=== PATIENT | male | born 1975 | race Hispanic/Latino ===

== ENCOUNTER 2017-06-01 19:42 | Observation (INO) | payer MEDICARE, OTHER ==
[2017-06-01 19:46] VITALS: BMI 27.1
[2017-06-01 20:16] LABS: BASO % 0.5 % (0.0-2.0); EOS # 0.2 K/uL (0.0-0.7); EOS % 3.9 % (0.0-4.0); HEMATOCRIT 43.5 % (35.0-51.0); LYMPH # 2.5 K/uL (1.0-4.3); LYMPH % 41.3 % (20.0-40.0); MEAN CELL VOLUME 93.7 fL (80.0-94.0); MEAN CORPUSCULAR HEMOGLOBIN 30.7 pg (27.0-31.0); MEAN CORPUSCULAR HGB CONC 32.8 g/dL (33.0-37.0); MEAN PLATELET VOLUME 8.1 fL (7.2-11.7); MONO # 0.5 K/uL (0.0-0.8); MONO % 8.9 % (0.0-10.0); RED CELL DISTRIBUTION WIDTH 14.4 % (11.5-14.5)
[2017-06-01 20:23] LABS: CHLORIDE 108 mmol/L (98-107); POTASSIUM 3.4 mmol/L (3.6-5.2); SODIUM 147 mmol/L (132-148)
[2017-06-01 20:25] LABS: ALB/GLOB RATIO 1.3 (1.0-2.1); ALKALINE PHOSPHATASE 70 U/L (38-126); AST/SGOT 79 U/L (17-59); BILIRUBIN,TOTAL 0.4 mg/dL (0.2-1.3); CARBON DIOXIDE 22 mmol/L (22-30); GFR AFRICAN-AMERICAN > 60; TOTAL PROTEIN 6.5 g/dL (6.3-8.3)
[2017-06-01 20:26] LABS: ALT/SGPT 73 U/L (21-72); BLOOD UREA NITROGEN 17 mg/dL (9-20); CALCIUM 7.9 mg/dl (8.6-10.4); GLUCOSE,RANDOM 130 mg/dL (75-110)
[2017-06-01 20:36] LABS: ALCOHOL SERUM 492 mg/dl (0-10)
--- NOTE | 2017-06-01 20:44 | C.PDOC ---
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 Reports he fell landing on his forehead. Patient was found by police staggering on the street bleeding from his forehead. Was recently evaluated at [facility] May 24 for alcohol abuse. Denies fever, chills, chest pain, SOB, abdominal pain, or any other complaints. Time Seen by Provider: 06/01/17 19:45 Chief Complaint (Nursing): Substance Abuse History Per: Patient History/Exam Limitations: no limitations Onset/Duration Of Symptoms: Hrs Current Symptoms Are (Timing): Still Present Suicide/Self Injury Attempted (Context): None Modifying Factor(s): Alcohol Severity: Mild Associated Symptoms: denies: Suicidal Thoughts, Suicidal Plan Recent travel outside of the [place]: No Additional History Per: Patient Past Medical History Reviewed: Historical Data, Nursing Documentation, Vital Signs Vital Signs: Last Vital Signs Temp 99.2 F 06/01/17 19:50 Pulse 108 H 06/01/17 19:50 Resp 16 06/01/17 19:50 BP 136/81 06/01/17 19:50 Pulse Ox 99 06/01/17 21:17 - [facility] Procedures INJECT/INFUSE NEC (02/19/14) Family History: States: Unknown Family Hx - Social History Hx Tobacco Use: Yes Hx Alcohol Use: No Hx Substance Use: No - Immunization History Hx Tetanus Toxoid Vaccination: No Hx Influenza Vaccination: No Hx Pneumococcal Vaccination: No Review Of Systems Except As Marked, All Systems Reviewed And Found Negative. Constitutional: Positive for: Other (Bleeding from the forehead. Alcohol intoxicated). Negative for: Fever, Chills Cardiovascular: Negative for: Chest Pain Respiratory: Negative for: Shortness of Breath Gastrointestinal: Negative for: Abdominal Pain Physical Exam - Physical Exam Appears: Non-toxic, No Acute Distress, Other ((+) AOB. spurious) Skin: Warm, Dry Head: Normacephalic, Laceration (1cm laceration to the forehead) Oral Mucosa: Moist Neck: No Midline Cervical Tenderness, Supple Cardiovascular: Rhythm Regular Respiratory: Normal Breath Sounds, No Rales, No Rhonchi, No Wheezing Gastrointestinal/Abdominal: Soft, No Tenderness Neurological/Psych: Oriented x3, No Normal Speech, Other (No focal deficit) Gait: Unsteady ED Course And Treatment - Laboratory Results Result Diagrams: 06/01/17 20:06 06/01/17 20:06 O2 Sat by Pulse Oximetry: 99 (RA) Pulse Ox Interpretation: Normal Medical Decision Making Medical Decision Making: Impression: 42 y/o male brought by police for public intoxication and 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 Plans: * CT Cervical * CT Head w/o * Blood work up * UA Disposition - Disposition Disposition Time: 01:00 Condition: GOOD - Clinical Impression Clinical Impression: Alcohol abuse with intoxication, Facial laceration - Scribe Statement The provider has reviewed the documentation as recorded by the Scribe Tin briscoe All medical record entries made by the Scribe were at my direction and personally dictated by me. I have reviewed the chart and agree that the record accurately reflects my personal performance of the history, physical exam, medical decision making, and the department course for this patient. I have also personally directed, reviewed, and agree with the discharge instructions and disposition. Physician Patient Turnover Patient Signed Over To: Nikolai Barker Handoff Comments: dispo in AM when sober
--- NOTE | 2017-06-01 21:14 | C.PDOC ---
Time Seen by Provider: 06/01/17 19:45 Chief Complaint (Nursing): Substance Abuse Past Medical History Vital Signs: Last Vital Signs Temp 99.2 F 06/01/17 19:50 Pulse 108 H 06/01/17 19:50 Resp 16 06/01/17 19:50 BP 136/81 06/01/17 19:50 Pulse Ox 99 06/01/17 19:50 - [facility] Procedures INJECT/INFUSE NEC (02/19/14) Family History: States: Unknown Family Hx - Social History Hx Tobacco Use: Yes Hx Alcohol Use: No Hx Substance Use: No - Immunization History Hx Tetanus Toxoid Vaccination: No Hx Influenza Vaccination: No Hx Pneumococcal Vaccination: No ED Course And Treatment - Laboratory Results Result Diagrams: 06/01/17 20:06 06/01/17 20:06 Lab Interpretation: Abnormal (ETOH 492 H) O2 Sat by Pulse Oximetry: 99 - Other Rad head Ct X-Ray: Read By Radiologist (no acute findings) CT C-spine X-Ray: Read By Radiologist (no acute findings.) Progress Note: c-collar and cleaned up in gurny. appropriately responsive for ETOH level Medical Decision Making Medical Decision Making: acute on chronic alcohol abuse, same @ [facility] 05/24/17, fall from standing, superficial facial lac, neg head/C-Spine CT's, Disposition - Disposition Forms: [employer] (Persian)
[2017-06-01 21:35] LABS: URINE BILIRUBIN NEGATIVE (NEGATIVE); URINE BLOOD NEGATIVE (NEGATIVE); URINE COLOR Straw (YELLOW); URINE GLUCOSE (UA) NORMAL (Normal); URINE KETONE NEGATIVE (NEGATIVE); URINE LEUKOCYTE ESTERASE NEG Leu/uL (Negative); URINE PROTEIN NEGATIVE (NEGATIVE); URINE UROBILINOGEN NORMAL mg/dL (0.2-1.0)
--- NOTE | 2017-06-01 21:43 | CT ---
EXAM: CT Head Without Intravenous Contrast CLINICAL HISTORY: 42 years old, male; Injury or trauma; Fall; Initial encounter; Abrasion; Forehead; Additional info: Intox, frontal contusion/lac TECHNIQUE: Axial computed tomography images of the head/brain without intravenous contrast. All CT scans at this facility use one or more dose reduction techniques, viz.: automated exposure control; ma/kV adjustment per patient size (including targeted exams where dose is matched to indication; i.e. head); or iterative reconstruction technique. COMPARISON: No relevant prior studies available. FINDINGS: Brain: Mild atrophy. No intracranial hemorrhage. No mass. No edema. Ventricles: No hydrocephalus. Bones/joints: No acute fracture. Soft tissues: Frontal soft tissue swelling. Scalp calcifications. Sinuses: No acute sinusitis. Mastoid air cells: No mastoid effusion. Orbits: Unremarkable as visualized. IMPRESSION: 1. No intracranial hemorrhage. 2. Incidental/non-acute findings are described above.
--- NOTE | 2017-06-01 21:52 | CT ---
EXAM: CT Cervical Spine Without Intravenous Contrast CLINICAL HISTORY: 42 years old, male; Injury or trauma; Fall; Initial encounter; Sprain or strain, cervical ligaments; Additional info: Intox, frontal contusion TECHNIQUE: Axial computed tomography images of the cervical spine without intravenous contrast. All CT scans at this facility use one or more dose reduction techniques, viz.: automated exposure control; ma/kV adjustment per patient size (including targeted exams where dose is matched to indication; i.e. head); or iterative reconstruction technique. Coronal and sagittal reformatted images were created and reviewed. COMPARISON: No relevant prior studies available. FINDINGS: Vertebrae: No acute fracture. Incomplete closure of C1 ring, normal variant. Discs/spinal canal/neural foramina: Early degenerative disc disease within lower cervical spine. No significant central canal stenosis. Mild neuroforaminal narrowing within lower cervical spine. Soft tissues: Unremarkable. Sinuses: Minimal mucosal thickening of maxillary sinuses. Lung apices: Unremarkable as visualized. IMPRESSION: 1. No fracture. 2. Incidental/non-acute findings are described above.
[2017-06-02 06:35] VITALS: BP 119/75; PULSE 90; RESP 18; TEMP 97.5; O2SAT 96
== END 2017-06-02 07:00 | disposition home or self-care (01) ==
LOC: C.ER 19:42 → C.9OBSV 21:16
PROVIDERS: ADMIT Internal Medicine; ATTEND Internal Medicine
DX: F10.129 Alcohol abuse with intoxication, unspecified (principal); S01.81XA Laceration without foreign body of other part of head, initial encounter; Z87.891 Personal history of nicotine dependence; W19.XXXA Unspecified fall, initial encounter
CPT/HCPCS: 70450; 72125; 80053; 81001; 85025; 99284; G0378; G0480

== ENCOUNTER 2017-06-12 16:56 | Observation (INO) | payer MEDICARE ==
[2017-06-12 16:56] VITALS: BMI 27.1
--- NOTE | 2017-06-12 18:54 | C.PDOC ---
History Of Present Illness A 42 year old male, with history of chronic etoh abuse, presents to the emergency department via EMS for public intoxication. The patient admits to drinking today and denies any fever, trauma, abdominal pain, headaches, or any other complaints at this time. HPI & ROS are limited due to intoxication. Time Seen by Provider: 06/12/17 18:36 Chief Complaint (Nursing): Substance Abuse History Per: Patient History/Exam Limitations: intoxication Onset/Duration Of Symptoms: Mins, Hrs Modifying Factor(s): Alcohol Past Medical History Vital Signs: Last Vital Signs Temp 97.6 F 06/12/17 19:44 Pulse 74 06/12/17 19:44 Resp 18 06/12/17 19:44 BP 108/82 06/12/17 19:44 Pulse Ox 95 06/12/17 19:44 - [facility] Procedures INJECT/INFUSE NEC (02/19/14) Family History: States: Unknown Family Hx - Social History Hx Tobacco Use: Yes Hx Alcohol Use: Yes Hx Substance Use: No - Immunization History Hx Tetanus Toxoid Vaccination: No Hx Influenza Vaccination: No Hx Pneumococcal Vaccination: No Review Of Systems Except As Marked, All Systems Reviewed And Found Negative. Constitutional: Negative for: Fever, Other (trauma ) Gastrointestinal: Negative for: Abdominal Pain Neurological: Negative for: Headache Physical Exam - Physical Exam Appears: Well, Non-toxic, No Acute Distress, Other (intoxicated ) Skin: Normal Color, Warm, Dry Head: Atraumatic, Normacephalic Eye(s): bilateral: Normal Inspection, PERRL, EOMI Nose: Normal Throat: Normal Neck: Normal Cardiovascular: Rhythm Regular Respiratory: Normal Breath Sounds Gastrointestinal/Abdominal: Normal Exam Back: Normal Inspection Extremity: Normal ROM ED Course And Treatment O2 Sat by Pulse Oximetry: 96 Reevaluation Time: 22:22 Reassessment Condition: Improved Medical Decision Making Medical Decision Making: Plan: Progress Notes: Patient is brought in via EMS for public intoxication and currently has alcohol on his breath and a healed scar from prior injury. 2220: clinically sober, re-eval no injuries nor neuro deficits Wants/ordered a tuna sandwich. Disposition Doctor Will See Patient In The: Office Counseled Patient/Family Regarding: Studies Performed, Diagnosis - Disposition Disposition: HOME/ ROUTINE Disposition Time: 22:22 Condition: GOOD - Clinical Impression Clinical Impression: Alcohol abuse - Scribe Statement The provider has reviewed the documentation as recorded by the Scribe Martha Bañuelos All medical record entries made by the Aleksandr were at my direction and personally dictated by me. I have reviewed the chart and agree that the record accurately reflects my personal performance of the history, physical exam, medical decision making, and the department course for this patient. I have also personally directed, reviewed, and agree with the discharge instructions and disposition.
[2017-06-12 19:45] VITALS: TEMP 97.6
[2017-06-12 22:23] VITALS: O2SAT 96
[2017-06-12 22:49] VITALS: BP 132/74; PULSE 72; RESP 26
== END 2017-06-12 22:21 | disposition home or self-care (01) ==
LOC: C.ER 16:56 → C.9OBSV 18:38
PROVIDERS: ADMIT Internal Medicine; ATTEND Internal Medicine
DX: F10.129 Alcohol abuse with intoxication, unspecified (principal)
CPT/HCPCS: 82948; G0378

== ENCOUNTER 2017-07-13 22:20 | Observation (INO) | payer MEDICARE ==
[2017-07-13 22:20] VITALS: BMI 27.1
--- NOTE | 2017-07-13 22:49 | C.PDOC ---
History Of Present Illness Patient presents to the ER with acute ETOH intoxication. Patient admits to drinking today; denies physical complaints at this time. Time Seen by Provider: 07/13/17 22:48 Chief Complaint (Nursing): Substance Abuse History Per: Patient History/Exam Limitations: no limitations Onset/Duration Of Symptoms: Hrs Current Symptoms Are (Timing): Still Present Suicide/Self Injury Attempted (Context): None Modifying Factor(s): Alcohol Severity: None Pain Scale Rating Of: 0 Associated Symptoms: denies: Depression, Suicidal Thoughts, Suicidal Plan Involuntary Hold By: None Recent travel outside of the [place]: No Past Medical History Reviewed: Historical Data, Nursing Documentation, Vital Signs Vital Signs: Last Vital Signs Temp 97.8 F 07/14/17 01:27 Pulse 80 07/14/17 03:24 Resp 18 07/14/17 03:24 BP 102/67 07/14/17 03:24 Pulse Ox 97 07/14/17 03:24 - Medical History PMH: No Chronic Diseases Surgical History: No Surg Hx - [facility] Procedures INJECT/INFUSE NEC (02/19/14) Family History: States: No Known Family Hx - Social History Hx Tobacco Use: Yes Hx Alcohol Use: Yes Hx Substance Use: No - Immunization History Hx Tetanus Toxoid Vaccination: No Hx Influenza Vaccination: No Hx Pneumococcal Vaccination: No Review Of Systems Constitutional: Negative for: Fever, Chills Gastrointestinal: Negative for: Nausea, Vomiting, Diarrhea Physical Exam - Physical Exam Appears: Non-toxic, No Acute Distress, Other (ETOH on breath, no signs of trauma ) Skin: Warm, Dry Head: Normacephalic Oral Mucosa: Moist Chest: Symmetrical, No Tenderness Cardiovascular: Rhythm Regular Respiratory: No Rales, No Rhonchi, No Wheezing Gastrointestinal/Abdominal: Soft, No Tenderness Neurological/Psych: Oriented x3 ED Course And Treatment O2 Sat by Pulse Oximetry: 97 Pulse Ox Interpretation: Normal Reevaluation Time: 05:06 Reassessment Condition: Improved ED OBSERVATION Discharge: Yes Date of observation admission: 07/13/17 Time of observation admission: 22:49 - Observation admission statement Patient is being placed in observation because:: acute alcohol intoxication - Goals of Observation Goals of observation are:: sobriety - Progress Note Progress Note: 07/13/17 22:49 vitals stable 07/14/17 01:06 vitals stable Disposition Counseled Patient/Family Regarding: Studies Performed, Diagnosis, Need For Followup - Disposition Disposition: HOME/ ROUTINE Disposition Time: 22:48 Condition: FAIR - Clinical Impression Clinical Impression: Alcohol abuse with intoxication - Scribe Statement The provider has reviewed the documentation as recorded by the Zachibbrandin Mata All medical record entries made by the Zachibbrandin were at my direction and personally dictated by me. I have reviewed the chart and agree that the record accurately reflects my personal performance of the history, physical exam, medical decision making, and the department course for this patient. I have also personally directed, reviewed, and agree with the discharge instructions and disposition.
[2017-07-14 01:28] VITALS: RESP 18; TEMP 97.8
[2017-07-14 03:24] VITALS: BP 102/67; PULSE 80; O2SAT 97
== END 2017-07-14 05:06 | disposition home or self-care (01) ==
LOC: C.ER 22:20 → C.9OBSV 22:50
PROVIDERS: ADMIT Emergency Medicine; ATTEND Emergency Medicine
DX: F10.129 Alcohol abuse with intoxication, unspecified (principal); Z87.891 Personal history of nicotine dependence; Y90.9 Presence of alcohol in blood, level not specified
CPT/HCPCS: 82948; 99284; G0378

== ENCOUNTER 2017-07-27 16:54 | Emergency (ER) | payer MEDICARE ==
[2017-07-27 17:03] VITALS: BMI 24.4
--- NOTE | 2017-07-27 20:22 | C.PDOC ---
History Of Present Illness Pt was BIBEMS due to public alcohol intoxication. Pt admits to drinking "a lot" of alcohol today. Time Seen by Provider: 07/27/17 17:10 Chief Complaint (Nursing): Substance Abuse History Per: Patient, EMS History/Exam Limitations: intoxication Onset/Duration Of Symptoms: Unknown (today) Current Symptoms Are (Timing): Still Present Suicide/Self Injury Attempted (Context): None Modifying Factor(s): Alcohol Severity: Severe Associated Symptoms: denies: Suicidal Thoughts, Suicidal Plan Additional History Per: Prior Records Past Medical History Reviewed: Historical Data, Nursing Documentation, Vital Signs Vital Signs: Last Vital Signs Temp 98.2 F 07/27/17 21:12 Pulse 84 07/27/17 21:12 Resp 16 07/27/17 21:12 BP 132/92 H 07/27/17 21:12 Pulse Ox 99 07/27/17 21:12 - Medical History PMH: No Chronic Diseases - [facility] Procedures INJECT/INFUSE NEC (02/19/14) Family History: States: Unknown Family Hx - Social History Hx Tobacco Use: Yes Hx Alcohol Use: Yes Hx Substance Use: No - Immunization History Hx Tetanus Toxoid Vaccination: No Hx Influenza Vaccination: No Hx Pneumococcal Vaccination: No Review Of Systems Review Of Systems: ROS cannot be obtained secondary to pt's inabilty to answer questions. Physical Exam - Physical Exam Appears: Other (AOB, intoxicated) Skin: Normal Color, Warm, Dry Head: Atraumatic, Normacephalic Eye(s): bilateral: PERRL Neck: Normal ROM, No Midline Cervical Tenderness, No Step Off Deformity, Supple Cardiovascular: Rhythm Regular Respiratory: Normal Breath Sounds, No Accessory Muscle Use Gastrointestinal/Abdominal: Soft, No Tenderness Extremity: Normal ROM, No Deformity Neurological/Psych: No Normal Speech (slurred), Slow To Respond With Command, Other (Moving all extremities) Gait: Unsteady ED Course And Treatment O2 Sat by Pulse Oximetry: 97 Pulse Ox Interpretation: Normal Progress Note: Pt is now AAOx3. Steady gait. Clinically sober. Tolerating PO. Reevaluation Time: 00:08 Reassessment Condition: Improved Disposition Counseled Patient/Family Regarding: Studies Performed, Diagnosis, Need For Followup - Disposition Disposition: HOME/ ROUTINE Disposition Time: 00:08 Condition: IMPROVED Additional Instructions: Follow up with your doctor. Avoid alcohol. Return to the ER if you develop worsening of symptoms or if you have any other concerns. Instructions: Abuse of Alcohol (ED) Forms: [employer] (Polish) - Clinical Impression Clinical Impression: Alcohol abuse
[2017-07-28 00:19] VITALS: BP 130/69; PULSE 88; RESP 18; TEMP 97.4; O2SAT 99
== END 2017-07-28 00:28 | disposition home or self-care (01) ==
LOC: C.ER 16:54
DX: F10.10 Alcohol abuse, uncomplicated (principal); Y90.9 Presence of alcohol in blood, level not specified
CPT/HCPCS: 99285; G0480

== ENCOUNTER 2017-09-08 22:35 | Emergency (ER) | payer MEDICARE ==
[2017-09-08 22:36] VITALS: BMI 24.4
--- NOTE | 2017-09-09 00:13 | C.PDOC ---
<Robby Arellano E - Last Filed: 09/09/17 00:12> <Brock Farris - Last Filed: 09/09/17 05:51> Time Seen by Provider: 09/08/17 22:58 Chief Complaint (Nursing): Substance Abuse Past Medical History Family History: States: Unknown Family Hx - Social History Hx Tobacco Use: Yes Hx Alcohol Use: Yes Hx Substance Use: No - Immunization History Hx Tetanus Toxoid Vaccination: No Hx Influenza Vaccination: No Hx Pneumococcal Vaccination: No <Robby Arellano - Last Filed: 09/09/17 00:12> Vital Signs: Last Vital Signs Temp 97.7 F 09/08/17 22:48 Pulse 90 09/09/17 01:30 Resp 14 09/09/17 01:30 BP 110/70 09/09/17 01:30 Pulse Ox 97 09/09/17 01:30 - [facility] Procedures INJECT/INFUSE NEC (02/19/14) ED Course And Treatment O2 Sat by Pulse Oximetry: 97 <Robby Arellano - Last Filed: 09/09/17 00:12> Disposition Doctor Will See Patient In The: Office Counseled Patient/Family Regarding: Studies Performed - Disposition Disposition Time: 01:00 <Robby Arellano - Last Filed: 09/09/17 00:12> - Disposition Disposition Time: 05:50 - POA Present On Arrival: None <Brock Farris - Last Filed: 09/09/17 05:51> - Disposition Disposition: HOME/ ROUTINE Condition: STABLE Instructions: Alcohol Intoxication (GEN), Abuse of Alcohol (ED) Forms: [facility] (Luxembourgish) - Clinical Impression Clinical Impression: Alcohol abuse, Alcohol intoxication Physician Patient Turnover Patient Signed Over To: Brock Farris Handoff Comments: dispo in AM when sober <Robby Arellano - Last Filed: 09/09/17 00:12>
[2017-09-09 03:10] VITALS: RESP 14
[2017-09-09 06:12] VITALS: BP 130/80; PULSE 88; TEMP 97.2; O2SAT 98
== END 2017-09-09 06:13 | disposition home or self-care (01) ==
LOC: C.ER 22:35
DX: F10.129 Alcohol abuse with intoxication, unspecified (principal); Y90.9 Presence of alcohol in blood, level not specified

== ENCOUNTER 2017-11-24 20:40 | Emergency (ER) | payer MEDICARE ==
[2017-11-24 20:40] VITALS: BMI 24.4
[2017-11-24 22:08] VITALS: RESP 18
[2017-11-25] MEDS ORDERED: Bacitracin 500 Units/gm Oint Foilpak UD ONE (03:51)
== END 2017-11-24 22:07 | disposition left against medical advice (07) ==
LOC: C.ER 20:40
DX: Z02.89 Encounter for other administrative examinations (principal); M25.571 Pain in right ankle and joints of right foot

== ENCOUNTER 2017-12-05 13:10 | Emergency (ER) | payer MEDICARE ==
[2017-12-05 13:27] VITALS: BMI 25.0
[2017-12-05 13:29] VITALS: BP 144/90; PULSE 98; RESP 18; TEMP 98; O2SAT 100
--- NOTE | 2017-12-05 15:54 | RAD ---
PROCEDURE: Right Ankle Radiographs. HISTORY: right ankle pain COMPARISON: None available. FINDINGS: BONES: No acute displaced fracture. JOINTS: No dislocation. SOFT TISSUES: Mild soft tissue swelling. No evidence of radiopaque foreign body. OTHER FINDINGS: None. IMPRESSION: Mild soft tissue swelling. No acute displaced fracture or dislocation identified. If symptoms persist or if there is clinical concern, x-ray follow-up in 7-10 days should be considered.
--- NOTE | 2017-12-05 15:56 | C.PDOC ---
History Of Present Illness 42 year old male presents to the ER with a complaint of right ankle pain after sustaining a twisting injury 5 days ago at the gym. Patient reports it is more painful when weight bearing. Patient is also requesting a pulmonary referral after he was told that he "might have COPD". Denies weakness or numbness. Time Seen by Provider: 12/05/17 14:03 Chief Complaint (Nursing): Lower Extremity Problem/Injury History Per: Patient History/Exam Limitations: no limitations Onset/Duration Of Symptoms: Days Current Symptoms Are (Timing): Still Present Recent travel outside of the [place]: No - Ankle/Foot Description Of Injury: Twisted Past Medical History Reviewed: Historical Data, Nursing Documentation, Vital Signs Vital Signs: Last Vital Signs Temp 98 F 12/05/17 13:26 Pulse 98 H 12/05/17 13:26 Resp 18 12/05/17 13:26 BP 144/90 12/05/17 13:26 Pulse Ox 100 12/05/17 15:56 - [facility] Procedures INJECT/INFUSE NEC (02/19/14) Family History: States: Unknown Family Hx - Social History Hx Tobacco Use: Yes Hx Alcohol Use: Yes Hx Substance Use: No - Immunization History Hx Tetanus Toxoid Vaccination: No Hx Influenza Vaccination: No Hx Pneumococcal Vaccination: No Review Of Systems Except As Marked, All Systems Reviewed And Found Negative. Musculoskeletal: Positive for: Foot Pain Physical Exam - Physical Exam Appears: Non-toxic, Other (Bizarre affect) Skin: Normal Color, Warm, Dry Head: Atraumatic, Normacephalic Eye(s): bilateral: Normal Inspection Chest: Symmetrical, No Tenderness Cardiovascular: Rhythm Regular Respiratory: Normal Breath Sounds, No Rales, No Rhonchi, No Wheezing Extremity: Tenderness (Right lateral malleolus), No Calf Tenderness, No Deformity, No Swelling, No Other (Erythema ) Pulses: Left Dorsalis Pedis: Normal, Right Dorsalis Pedis: Normal Neurological/Psych: Oriented x3, Normal Speech, Normal Motor, Normal Sensation Gait: Steady ED Course And Treatment O2 Sat by Pulse Oximetry: 100 (Room air) Pulse Ox Interpretation: Normal - Other Rad Right ankle x-ray X-Ray: Interpreted by Me, Viewed By Me Interpretation: No acute fractures or dislocations. Progress Note: Right ankle x-ray ordered, results were negative. Jagjit wrap applied and patient instructed to follow up with podiatry or ortho. Disposition Counseled Patient/Family Regarding: Diagnosis, Need For Followup, Rx Given - Disposition Referrals: Ashwin Lu III, MD [Staff Provider] - Podiatry Clinic [Outside] Anali Mac MD [Staff Provider] - Disposition: HOME/ ROUTINE Disposition Time: 15:55 Condition: STABLE Additional Instructions: FOLLOW UP WITH ORTHOPEDICS WITHIN 1 WEEK USE PAIN MEDICATION NEEDED NO GY/SPORTS UNTIL CLEARED BY ORTHOPEDICS/PODIATRY RETURN TO ER IF SYMPTOMS WORSEN Prescriptions: Naproxen 375 mg PO BID PRN #20 tablet PRN Reason: pain Instructions: Ankle Sprain Forms: [employer] (Thai) Print Language: ALGERIAN - POA Present On Arrival: None - Clinical Impression Clinical Impression: Right ankle sprain - Scribe Statement The provider has reviewed the documentation as recorded by the Scribbrandin Mata All medical record entries made by the Scribe were at my direction and personally dictated by me. I have reviewed the chart and agree that the record accurately reflects my personal performance of the history, physical exam, medical decision making, and the department course for this patient. I have also personally directed, reviewed, and agree with the discharge instructions and disposition.
== END 2017-12-05 16:04 | disposition home or self-care (01) ==
LOC: C.ER 13:10
DX: S93.401A Sprain of unspecified ligament of right ankle, initial encounter (principal); X50.1XXA Overexertion from prolonged static or awkward postures, initial encounter; Y92.39 Other specified sports and athletic area as the place of occurrence of the external cause

== ENCOUNTER → 2018-01-05 22:17 | Emergency (ER) | payer MEDICARE ==
[2018-01-05 22:18] VITALS: BMI 25.0
== END | disposition left against medical advice (07) ==
LOC: C.ER 22:17
DX: Z02.89 Encounter for other administrative examinations (principal); F19.10 Other psychoactive substance abuse, uncomplicated